=== PATIENT | female | born 1990 | race African-American/Black ===

== ENCOUNTER 2018-04-24 05:57 | Emergency (ER) | payer MEDICAID ==
[~2018-04-24] VITALS: Ht 162.6 cm; Wt 61.0 kg
[2018-04-24] MEDS ORDERED: FAMOTIDINE 20MG/2ML VIAL IV STA (06:57)
[2018-04-24] MEDS ORDERED: ONDANSETRON HCL 4MG/2ML INJ IV STA (06:57)
[2018-04-24] MEDS ORDERED: MORPHINE SULFATE 4 MG/ML CPJ (NOT FOR IM USE) IV STA (06:57)
[2018-04-24] MEDS ORDERED: SODIUM CHLORIDE 0.9% 1,000 ML IV ONE (06:57)
[2018-04-24] MEDS ORDERED: KETOROLAC 30MG/ML VIAL IV STA (06:57)
[2018-04-24 08:37] LABS: BASOPHILS % 0.4 % (0.0-2.0); EOSINOPHILS % 0.1 % (0.0-5.0); HEMATOCRIT. 33.2 % (36.0-48.0); HEMOGLOBIN. 11.3 g/dL (12.0-16.0); LYMPHOCYTES % 8.7 % (20.0-50.0); MEAN CORPUSCULAR HEMOGLOBIN 33.2 pg (28.0-32.0); MEAN CORPUSCULAR VOLUME 97.5 fL (81.0-99.0); MEAN PLATELET VOLUME 7.9 fl (7.4-10.4); MONOCYTES % 5.2 % (2.0-8.0); NEUTROPHILS % 85.6 % (40.0-76.0); PLATELET 192 x1000/uL (130-400); RED CELL DISTRIBUTION WIDTH 12.3 % (11.6-14.6)
[2018-04-24 08:42] LABS: CHLORIDE 106 mEq/L (98-107)
[2018-04-24 08:43] LABS: PROTHROMBIN TIME 10.4 sec (9.1-11.1)
[2018-04-24 09:08] LABS: CLARITY URINE CLOUDY (CLEAR); COLOR URINE DARK YELLOW (YELLOW); KETONES URINE 1+ (NEGATIVE); LEUKOCYTE ESTERASE URINE 1+ (NEGATIVE); NITRITE URINE NEGATIVE (NEGATIVE); OCCULT BLOOD URINE 3+ (NEGATIVE); PH URINE 6.5 (4.5-8.0); PROTEIN URINE 1+ (NEGATIVE); SPECIFIC GRAVITY URINE 1.036 (1.005-1.030)
[2018-04-24] MEDS ORDERED: HYDROCODONE/ACETAMINOPHEN 5/325MG TABLET PO ONE (10:00)
[2018-04-24] MEDS ORDERED: ONDANSETRON HCL 4MG/2ML INJ IV ONE (13:00)
[2018-04-24 13:45] VITALS: BP 111/69
== END 2018-04-24 13:47 | disposition home or self-care (01) ==
LOC: ER 05:57
DX: A59.9 Trichomoniasis, unspecified (principal); E11.65 Type 2 diabetes mellitus with hyperglycemia; E86.0 Dehydration; R03.0 Elevated blood-pressure reading, without diagnosis of hypertension
CPT/HCPCS: 36415; 74176; 76705; 80053; 81003; 81025; 83690; 85025; 85610; 96361; 96374; 96375; 96376; 99284; J1885; J2270; J2405; J3490; J7030

== ENCOUNTER 2018-05-08 18:26 | Inpatient (IN) | payer MEDICAID ==
[~2018-05-08] VITALS: Ht 162.6 cm; Wt 61.2 kg
[2018-05-09] MEDS ORDERED: MORPHINE SULFATE 4 MG/ML CPJ (NOT FOR IM USE) IV STA (00:59)
[2018-05-09] MEDS ORDERED: ONDANSETRON HCL 4MG/2ML INJ IV STA (00:59)
[2018-05-09] MEDS ORDERED: SODIUM CHLORIDE 0.9% 1,000 ML IV ONE (00:59)
[2018-05-09] MEDS ORDERED: PIPERACILLIN/TAZ 3.375G PREMIX 50 ML IV ONE (01:00)
[2018-05-09] MEDS ORDERED: VANCOMYCIN 1 G PREMIX 200 ML IV SCH (01:00)
[2018-05-09 01:49] LABS: CLARITY URINE CLEAR (CLEAR); COLOR URINE YELLOW (YELLOW); KETONES URINE NEGATIVE (NEGATIVE); LEUKOCYTE ESTERASE URINE NEGATIVE (NEGATIVE); NITRITE URINE NEGATIVE (NEGATIVE); OCCULT BLOOD URINE NEGATIVE (NEGATIVE); PROTEIN URINE TRACE (NEGATIVE); SPECIFIC GRAVITY URINE 1.025 (1.005-1.030); UROBILINOGEN URINE 0.2 E.U./dL (0.2-1.0)
[2018-05-09 02:05] LABS: BASOPHILS % 0.4 % (0.0-2.0); EOSINOPHILS % 0.4 % (0.0-5.0); HEMATOCRIT. 30.4 % (36.0-48.0); HEMOGLOBIN. 10.2 g/dL (12.0-16.0); MEAN CORPUSCULAR HEMOGLOBIN 32.9 pg (28.0-32.0); MEAN CORPUSCULAR VOLUME 97.6 fL (81.0-99.0); MONOCYTES % 5.8 % (2.0-8.0); NEUTROPHILS % 80.4 % (40.0-76.0); PLATELET 228 x1000/uL (130-400); RED BLOOD CELL COUNT 3.11 mill/uL (4.2-5.4); RED CELL DISTRIBUTION WIDTH 13.1 % (11.6-14.6)
[2018-05-09 02:12] LABS: CHLORIDE 103 mEq/L (98-107); INR 1.1; PARTIAL THROMBOPLASTIN TIME 31.3 sec (23.4-31.0); PROTHROMBIN TIME 10.8 sec (9.1-11.1)
[2018-05-09] MEDS ORDERED: IOHEXOL-300 100 ML BOTTLE ONE (04:02)
[2018-05-09 08:00] VITALS: BP 133/72
[2018-05-09] MEDS ORDERED: METF500S7 PO (08:23)
[2018-05-09] MEDS: HYDROCODONE/ACETAMINOPHEN 5/325MG TABLET PO PRN ×2 (09:06→14:43)
[2018-05-09 09:41] VITALS: BP 141/68
[2018-05-09] MEDS ORDERED: SULFAMETHOXAZOLE/TRIMETHOPRIM 800/160MG TABLET PO SCH (10:00)
[2018-05-09] MEDS ORDERED: CEFAZOLIN 1000MG PREMIX 50 ML IV SCH (10:00)
[2018-05-09] MEDS: PIPERACILLIN/TAZ 3.375G PREMIX 50 ML IV SCH ×2 (10:37→16:08)
[2018-05-09 12:00] VITALS: BP 132/86
[2018-05-09] MEDS ORDERED: CLONIDINE 0.1MG TABLET PO PRN (12:00)
[2018-05-09] MEDS ORDERED: DEXTROSE 50% WATER 50ML SYRINGE IV PRN (12:00)
[2018-05-09] MEDS: BLOOD SUGAR DIAGNOSTIC STRIP TEST SCH ×3 (12:28→20:43)
[2018-05-09] MEDS: INSULIN LISPRO 100 UNITS/ML SUBCUT SCH ×3 (12:48→21:25)
[2018-05-09] MEDS: METFORMIN HCL 500MG TABLET PO SCH (17:39)
[2018-05-09] MEDS ORDERED: TETANUS, DIPHTHERIA, PERTUSSIS VAC/PF 0.5ML (>7YR OLD) IM ONE (19:30)
[2018-05-09 20:00] VITALS: BP 134/97
[2018-05-09] MEDS: HYDROMORPHONE HCL/PF 2MG/ML CPJ IV PRN (20:59)
[2018-05-09] MEDS ORDERED: VANCOMYCIN 1250MG in DEXTROSE 5% WATER 250ML IV NR (21:00)
[2018-05-09] MEDS: AMOXICILLIN/POTASSIUM CLAVULANATE 875/125MG TAB PO SCH (21:57)
[2018-05-10] VITALS: BP 133/80
[2018-05-10] MEDS: HYDROMORPHONE HCL/PF 2MG/ML CPJ IV PRN ×3 (03:37→18:47)
[2018-05-10 04:00] VITALS: BP 125/87
[2018-05-10] MEDS: VANCOMYCIN 750 MG PREMIX 150 ML IV SCH ×3 (05:35→22:37)
[2018-05-10 06:32] LABS: CHLORIDE 102 mEq/L (98-107)
[2018-05-10 06:43] LABS: BASOPHILS % 0.6 % (0.0-2.0); EOSINOPHILS % 0.7 % (0.0-5.0); HEMATOCRIT. 27.9 % (36.0-48.0); HEMOGLOBIN. 9.5 g/dL (12.0-16.0); LYMPHOCYTES % 7.8 % (20.0-50.0); MEAN CORPUSCULAR HEMOGLOBIN 32.9 pg (28.0-32.0); MEAN CORPUSCULAR VOLUME 96.6 fL (81.0-99.0); MEAN PLATELET VOLUME 7.9 fl (7.4-10.4); MONOCYTES % 5.2 % (2.0-8.0); NEUTROPHILS % 85.7 % (40.0-76.0); PLATELET 209 x1000/uL (130-400); RED BLOOD CELL COUNT 2.89 mill/uL (4.2-5.4); RED CELL DISTRIBUTION WIDTH 12.8 % (11.6-14.6)
[2018-05-10] MEDS: BLOOD SUGAR DIAGNOSTIC STRIP TEST SCH ×4 (06:49→21:00)
[2018-05-10] MEDS: INSULIN LISPRO 100 UNITS/ML SUBCUT SCH ×4 (06:53→21:00)
[2018-05-10] MEDS: METFORMIN HCL 500MG TABLET PO SCH ×2 (06:55→17:21)
[2018-05-10 08:00] VITALS: BP 144/99
[2018-05-10] MEDS: AMOXICILLIN/POTASSIUM CLAVULANATE 875/125MG TAB PO SCH ×2 (08:41→21:21)
[2018-05-10] MEDS: HYDROCODONE/ACETAMINOPHEN 5/325MG TABLET PO PRN (08:41)
[2018-05-10 12:23] VITALS: BP 153/98
[2018-05-10 16:04] VITALS: BP 108/72
[2018-05-10 20:00] VITALS: BP 124/74
[2018-05-11] VITALS: BP 149/97
[2018-05-11] MEDS: HYDROMORPHONE HCL/PF 2MG/ML CPJ IV PRN ×2 (01:07→08:52)
[2018-05-11 04:00] VITALS: BP 144/87
[2018-05-11] MEDS: VANCOMYCIN 750 MG PREMIX 150 ML IV SCH ×2 (05:16→13:01)
[2018-05-11] MEDS: BLOOD SUGAR DIAGNOSTIC STRIP TEST SCH ×2 (06:31→12:56)
[2018-05-11] MEDS: INSULIN LISPRO 100 UNITS/ML SUBCUT SCH ×2 (07:50→13:04)
[2018-05-11 08:00] VITALS: BP 132/72
[2018-05-11] MEDS: AMOXICILLIN/POTASSIUM CLAVULANATE 875/125MG TAB PO SCH (08:52)
[2018-05-11] MEDS: METFORMIN HCL 500MG TABLET PO SCH (08:52)
[2018-05-11 12:00] VITALS: BP_SYST 136; BP_SYST 165; BP_DIAS 114; BP_DIAS 77
[2018-05-11 15:19] VITALS: BP 132/66
== END 2018-05-11 15:46 | disposition home or self-care (01) | DRG 383 ==
LOC: ER 19:28 → EDBEDREQ 05-09 01:12 → 6EST 05-09 03:55 → EDBEDREQTM 05-09 04:13 → EDBEDREQ 05-09 04:13 → ENRESERV 05-09 04:38 → 6EST 05-11 11:37
PROVIDERS: ADMIT Internal Medicine; ATTEND Internal Medicine
DX: L03.211 Cellulitis of face (principal); E44.1 Mild protein-calorie malnutrition; D64.9 Anemia, unspecified; E11.9 Type 2 diabetes mellitus without complications; F17.200 Nicotine dependence, unspecified, uncomplicated; T63.301A Toxic effect of unspecified spider venom, accidental (unintentional), initial encounter; Z88.6 Allergy status to analgesic agent; Z98.891 History of uterine scar from previous surgery; Y92.89 Other specified places as the place of occurrence of the external cause; Z79.899 Other long term (current) drug therapy; Z68.23 Body mass index [BMI] 23.0-23.9, adult
CPT/HCPCS: 36415; 70487; 80048; 80202; 82962; 83605; 90715; 96365; 96375; 99285; J0690; J1170; J1815; J2270; J2405; J2543; J3370; J7030; J7060; Q9967

== ENCOUNTER 2019-10-27 18:45 | Emergency (ER) | payer MEDICAID ==
[~2019-10-27] VITALS: Ht 170.2 cm; Wt 87.0 kg
[~2019-10-27 18:45] MED LIST: METF500S7 PO
[2019-10-27] MEDS ORDERED: SODIUM CHLORIDE 0.9% 1,000 ML IV ONE (19:04)
[2019-10-27] MEDS ORDERED: ACETAMINOPHEN 325MG TABLET PO PRN (19:15)
[2019-10-27 19:29] LABS: BASOPHILS % 0.7 % (0.0-2.0); EOSINOPHILS % 0.9 % (0.0-5.0); HEMATOCRIT. 29.7 % (36.0-48.0); HEMOGLOBIN. 10.3 g/dL (12.0-16.0); LYMPHOCYTES % 18.2 % (20.0-50.0); MEAN CORPUSCULAR HEMOGLOBIN 34.8 pg (28.0-32.0); MEAN CORPUSCULAR VOLUME 99.9 fL (81.0-99.0); MEAN PLATELET VOLUME 7.5 fl (7.4-10.4); MONOCYTES % 9.2 % (2.0-8.0); PLATELET 216 x1000/uL (130-400); RED BLOOD CELL COUNT 2.97 mill/uL (4.2-5.4)
[2019-10-27 19:34] LABS: CHLORIDE 104 mEq/L (98-107)
[2019-10-27 19:40] LABS: CLARITY URINE CLEAR (CLEAR); COLOR URINE YELLOW (YELLOW); KETONES URINE NEGATIVE (NEGATIVE); LEUKOCYTE ESTERASE URINE NEGATIVE (NEGATIVE); NITRITE URINE NEGATIVE (NEGATIVE); OCCULT BLOOD URINE NEGATIVE (NEGATIVE); PROTEIN URINE TRACE (NEGATIVE); SPECIFIC GRAVITY URINE 1.011 (1.005-1.030); UROBILINOGEN URINE 0.2 E.U./dL (0.2-1.0)
[2019-10-27 19:57] LABS: B-HCG QUANTITATIVE 14599 mIU/mL (<3)
[2019-10-27 23:15] VITALS: BP 134/68
== END 2019-10-27 23:15 | disposition home or self-care (01) ==
LOC: ER 18:45
DX: O26.892 Other specified pregnancy related conditions, second trimester (principal); R51 Headache; R03.0 Elevated blood-pressure reading, without diagnosis of hypertension; O99.012 Anemia complicating pregnancy, second trimester; Z3A.23 23 weeks gestation of pregnancy
CPT/HCPCS: 36415; 70450; 80053; 81003; 82962; 84702; 85025; 93005; 96360; 99285; J7030

== ENCOUNTER 2021-04-02 11:50 | Emergency (ER) | payer MEDICAID ==
[~2021-04-02] VITALS: Ht 162.6 cm; Wt 58.0 kg
[2021-04-02 11:59] VITALS: BP 105/63
[2021-04-02] MEDS ORDERED: TOPUD PO (12:19)
[2021-04-02] MEDS ORDERED: ONDANSETRON 4MG ODT PO ONE (12:30)
== END 2021-04-02 12:59 | disposition home or self-care (01) ==
LOC: ER 11:50
DX: U07.1 COVID-19 (principal); Z88.6 Allergy status to analgesic agent
CPT/HCPCS: 81025; 99283; C9803; Q0162; U0003; U0005

== ENCOUNTER 2022-06-03 20:29 | Emergency (ER) | payer MEDICAID, OTHER ==
[~2022-06-03] VITALS: Ht 162.6 cm; Wt 61.0 kg
[~2022-06-03 20:29] MED LIST changes: -METF500S7 PO; +METF500S9 PO; +TOPUD PO
[2022-06-04 04:34] LABS: CLARITY URINE CLEAR (CLEAR); COLOR URINE YELLOW (YELLOW); KETONES URINE NEGATIVE (NEGATIVE); LEUKOCYTE ESTERASE URINE NEGATIVE (NEGATIVE); NITRITE URINE NEGATIVE (NEGATIVE); OCCULT BLOOD URINE 1+ (NEGATIVE); PROTEIN URINE NEGATIVE (NEGATIVE); SPECIFIC GRAVITY URINE 1.033 (1.005-1.030)
[2022-06-04 04:35] LABS: BASOPHILS % 0.5 % (0.0-2.0); EOSINOPHILS % 1.3 % (0.0-5.0); HEMATOCRIT. 36.9 % (36.0-48.0); HEMOGLOBIN. 12.6 g/dL (12.0-16.0); LYMPHOCYTES % 34.6 % (20.0-50.0); MEAN CORPUSCULAR HEMOGLOBIN 33.6 pg (28.0-32.0); MEAN CORPUSCULAR VOLUME 98.2 fL (81.0-99.0); MEAN PLATELET VOLUME 7.8 fl (7.4-10.4); MONOCYTES % 6.8 % (2.0-8.0); NEUTROPHILS % 56.8 % (40.0-76.0); PLATELET 248 x1000/uL (130-400); RED BLOOD CELL COUNT 3.75 mill/uL (4.2-5.4); RED CELL DISTRIBUTION WIDTH 12.7 % (11.6-14.6)
[2022-06-04 04:41] LABS: CHLORIDE 103 mEq/L (98-107)
[2022-06-04 04:46] LABS: HCG SCREEN NEGATIVE
[2022-06-04 04:58] LABS: BETA HYDROXYBUTYRATE 0.2 mMol/L (0.0-0.3)
[2022-06-04] MEDS ORDERED: SODIUM CHLORIDE 0.9% 1,000 ML IV ONE (05:45)
[2022-06-04 08:02] VITALS: BP 118/75
== END 2022-06-04 08:00 | disposition home or self-care (01) ==
LOC: ER 20:57
DX: E11.65 Type 2 diabetes mellitus with hyperglycemia (principal); Z98.890 Other specified postprocedural states
CPT/HCPCS: 36415; 80053; 81003; 82010; 82962; 83690; 84703; 85025; 96360; 99283; J7030

== ENCOUNTER 2024-01-29 12:03 | Emergency (ER) | payer SELFPAY ==
[~2024-01-29] VITALS: Ht 162.6 cm; Wt 69.0 kg
[2024-01-29 12:05] VITALS: PULSE 110; O2SAT 100
[2024-01-29 12:09] VITALS: BP 125/88; RESP 18; TEMP 98.1; O2SAT 99
[2024-01-29 13:16] LABS: CLARITY URINE CLEAR (CLEAR); COLOR URINE YELLOW (YELLOW); GLUCOSE URINE 3+ (NEGATIVE); KETONES URINE NEGATIVE (NEGATIVE); LEUKOCYTE ESTERASE URINE NEGATIVE (NEGATIVE); NITRITE URINE NEGATIVE (NEGATIVE); OCCULT BLOOD URINE NEGATIVE (NEGATIVE); PROTEIN URINE NEGATIVE (NEGATIVE); SPECIFIC GRAVITY URINE 1.031 (1.005-1.030); UROBILINOGEN URINE 0.2 E.U./dL (0.2-1.0)
[2024-01-29 13:37] LABS: BASOPHILS % 0.4 % (0.0-2.0); EOSINOPHILS % 0.6 % (0.0-5.0); HEMATOCRIT. 33.8 % (36.0-48.0); HEMOGLOBIN. 11.5 g/dL (12.0-16.0); LYMPHOCYTES % 26.7 % (20.0-50.0); MEAN CORPUSCULAR HGB CONC 34.1 g/dL (31.0-37.0); MEAN CORPUSCULAR VOLUME 96.8 fL (81.0-99.0); MEAN PLATELET VOLUME 7.8 fl (7.4-10.4); MONOCYTES % 10.2 % (2.0-8.0); NEUTROPHILS % 62.1 % (40.0-76.0); PLATELET 213 x1000/uL (130-400); RED BLOOD CELL COUNT 3.49 mill/uL (4.2-5.4)
[2024-01-29 13:44] LABS: CHLORIDE 100 mEq/L (98-107); SODIUM 130 mEq/L (136-145)
[2024-01-29 13:46] LABS: CALCIUM 9.1 mg/dL (8.7-10.4); CARBON DIOXIDE 25 mEq/L (21-32)
[2024-01-29 13:51] LABS: CREATININE 1.1 mg/dL (0.6-1.0); GLUCOSE 383 mg/dL (70-105); UREA NITROGEN BLOOD 16 mg/dL (9-23)
[2024-01-29 13:53] LABS: ALANINE AMINOTRANSFERASE 7 IU/L (10-49); ALBUMIN 3.9 g/dL (3.2-4.8); ASPARTATE AMINOTRANSFERASE 11 IU/L (<34); BILIRUBIN TOTAL 0.4 mg/dL (0.1-1.0); PROTEIN TOTAL 6.9 g/dL (6.0-8.3)
[2024-01-29 13:54] LABS: SQUAMOUS EPITHELIAL CELL URINE FEW /lpf (RARE/1+)
[2024-01-29 13:55] LABS: BACTERIA URINE TRACE; RBC URINE 0-2 /hpf (0-2); WBC URINE 0-2 /hpf (0-2); YEAST URINE FEW
[2024-01-29 14:06] LABS: BILIRUBIN DIRECT < 0.1 mg/dL (<=3.0)
[2024-01-29] MEDS ORDERED: ONDANSETRON HCL 4MG TABLET PO ONE (14:45)
[2024-01-29] MEDS ORDERED: ACETAMINOPHEN 325MG TABLET PO ONE (14:45)
[2024-01-29 15:31] LABS: HCG SCREEN NEGATIVE
== END 2024-01-29 15:04 | disposition left against medical advice (07) ==
LOC: ER 12:03
DX: E11.65 Type 2 diabetes mellitus with hyperglycemia (principal); Z88.6 Allergy status to analgesic agent; Z98.890 Other specified postprocedural states
CPT/HCPCS: 36415; 80048; 80076; 81003; 81025; 82962; 84703; 85025; 99283